=== PATIENT | male | born 1960 | race Caucasian/White ===

== ENCOUNTER 2016-11-08 13:28 | Observation (INO) | payer BC ==
[~2016-11-08] VITALS: Ht 172.7 cm; Wt 79.2 kg
[2016-11-08 14:35] VITALS: BP 95/60; TEMP 36.7; O2SAT 96; BMI 27.0
--- NOTE | 2016-11-08 14:39 | History & Physical Bridge Note ---
H&P Re-Evaluation Bridge Note: I have examined the patient, reviewed the History & Physical and in the interval since the performance of the History & Physical I have noted the following changes of clinical significance: No changes noted
--- NOTE | 2016-11-08 14:39 | Procedure Note ---
Pre-Mod Sedation Assessment General Date of Moderate Sedation: Nov 08, 2016. Review Cardiovascular: regular rate, rhythm Abdomen: soft Lungs: lungs clear Airway Class: II Pre-Sedation Airway Assessment Oral Cavity: WNL Able to Visualize Vocal Cords: No Short Thick Neck: No Hx of Sleep Apnea: No Smoking Status: Former Smoker Mallampati Classification: Class II ASA Classification: Class II Procedure Planning Contraindications-for Mod Sed: None Yes Notes The planned sedation has been discussed with the patient and consent obtained. I have identified the patient, determined the appropriateness of sedation and have assessed the patient immediately prior to the procedure. All medicine(s) and interventions are by my order.
[2016-11-08] MEDS ORDERED: FURO-85 PO (14:49)
[2016-11-08] MEDS ORDERED: CARV6.252 PO (14:50)
[2016-11-08] MEDS ORDERED: NTRGSL/4 UT (14:50)
[2016-11-08] MEDS ORDERED: CLOP1TAB15 PO (14:50)
[2016-11-08] MEDS ORDERED: ASPI1CHW12 (14:50)
[2016-11-08] MEDS ORDERED: LISI-729 PO (14:50)
[2016-11-08] MEDS ORDERED: ATOR-26 PO (14:50)
[2016-11-08] MEDS ORDERED: ASPI-232 PO (14:50)
[2016-11-08] MEDS ORDERED: BUPIVACAINE 0.5 % 5 MG/1 ML MPF 30ML VIAL ONE (15:00)
[2016-11-08] MEDS ORDERED: BACITRACIN 50000 UNIT VIAL ONE (15:00)
[2016-11-08] MEDS ORDERED: LIDOCAINE HCL 1% 20 ML VIAL ONE (15:00)
[2016-11-08] MEDS ORDERED: KEFZOL SPECIAL PROCEDURE STOCK 1 GM ADDVIAL IV ONE ×2 (15:25)
[2016-11-08] MEDS ORDERED: MIDAZOLAM HCL 5 MG/ML 1 ML VIAL ONE ×2 (15:25→15:54)
[2016-11-08] MEDS ORDERED: FENTANYL CITRATE INJ 50 MCG/1 ML 2 ML VIAL ONE ×2 (15:25→15:54)
--- NOTE | 2016-11-08 16:54 | Procedure Note ---
Post-Mod Sedation Assessment General Date of Moderate Sedation Nov 08, 2016. Vital Signs: Vital Signs Past 12 Hours Date Time Temp Pulse Resp B/P (MAP) Pulse Ox O2 Delivery O2 Flow Rate FiO2 11/08/16 16:45 60 16 85/60 (68) 99 Mask 3 11/08/16 14:35 36.7 16 95/60 96 Review - Discharge Criteria Vital Signs Stable: Yes Alert/Oriented/Conversant: Yes Returned to Baseline Mental St: Yes Nausea Absent/Minimal: Yes Pain/Discomfort/Absent/Minimal: Yes Normal/Baseline Respirations: Yes Active Bleeding?: No Pt Received D/C Instructions: N/A Prescriptions Given: None Specific Proced. D/C Criteria Distal Pulses Present (Cardiac: N/A Groin site assessed-Card Cath: N/A Voided Prior To Discharge: N/A Discharged Patients Adult Escort/Transportation: N/A
--- NOTE | 2016-11-08 16:56 | Discharge Instructions ---
Discharge Instructions Date of Service Nov 08, 2016. Admission Reason for Admission: Eschemic Cardiomyopathy *Dr Silver* Discharge Discharge Diagnosis / Problem: ischemic cardiomyopathy Discharge Goals Goal(s): Improve function Activity Recommendations Activity Limitations: as noted below Lifting Limitations: no more than 10 pounds (do not lift the left elbow over the left shoulder for 1 month and lift more than 10 pounds with the left arm for 2 weeks) Driving or Machine Use: resume 1 day after discharge . Instructions / Follow-Up Instructions / Follow-Up ACTIVITY RECOMMENDATIONS: * Do not raise affected arm over head for 4 weeks. SPECIAL CARE INSTRUCTIONS: * If bleeding occurs, apply direct pressure to area for 5 minutes. * Call your doctor if you have severe pain, fever, drainage or bleeding at site. * Keep dry for 24hours. * Keep any scheduled doctor's appointment. * Implant Card - hand held device with website information given. SKIN IRRITATION: * You may experience some redness and/or swelling in the area where radiation was administered. If any skin irritation occurs, please contact your family physician. FOLLOW UP VISIT: Keep any scheduled doctor appointments. Current Hospital Diet Patient's current hospital diet: AHA Diet (Heart Healthy), Low Sodium Diet (2gm Na) Discharge Diet Recommended Diet: AHA Diet (Heart Healthy), Low Sodium Diet (2gm Na) Procedures Procedures Performed: dual chamber rate responsive ICD under fluroscopic guidance Pending Studies Studies pending at discharge: no Medical Emergencies . Who to Call and When: Medical Emergencies: If at any time you feel your situation is an emergency, please call 911 immediately. . Non-Emergent Contact Non-Emergency issues call your: [employer] . . "Provider Documentation" section prepared by Adriana Silver. . VTE Core Measure Inpt VTE Proph given/why not?: Linda Franklin
[2016-11-08] MEDS ORDERED: ACETAMINOPHEN 325 MG TAB PO PRN (17:00)
[2016-11-08] MEDS ORDERED: NITROGLYCERIN 0.4 MG SL PER TAB CHARGE UT PRN (17:00)
--- NOTE | 2016-11-08 17:00 | Discharge Summary ---
Discharge Summary Date of Service Nov 08, 2016. Discharge Summary Admission Date: 11/08/2016 Discharge Date: Nov 09, 2016 Discharge Disposition: Home Principal Diagnosis: ICM Secondary Diagnoses/Problems: Sinus bradycardia Hypotension CAD s/p STEMI HLD Procedures: dual chamber rate responsive ICD under fluoroscopic guidance Medication Reconciliation Continued Medications: Aspirin (Aspir-81) 81 Mg Tab 1 TAB PO DAILY for 30 Days, #30 TAB 5 Refills Atorvastatin (Lipitor) 80 Mg Tab 80 MG PO DAILY, TAB Carvedilol (Coreg) 6.25 Mg Tab 1 TAB PO BID for 90 Days, #180 TAB 1 Refill Clopidogrel (Plavix) 75 Mg Tab 75 MG PO DAILY, TAB Furosemide (Lasix) 20 Mg Tab 1 TAB PO DAILY for 90 Days, #90 TAB 1 Refill Nitroglycerin (Nitrostat) 0.4 Mg Tab 0.4 MG UT PRN, BTL Discontinued Medications: Lisinopril (Zestril) 5 Mg Tab 5 MG PO, TAB Admission Information Physical Exam (per Admitting): aaox3, NAD Supple, No JVD bradycardia S1/S2, no murmur cta b/l no w/r/r soft nt/nd no edema b/l le no focal deficits skin intact Hospital Course Pt admitted for elective ICD due to ICM and SB. Underwent procedure without any complications. Monitored overnight and discharged home following day. Total time spent on discharge = 30 minutes This includes examination of the patient, discharge planning, medication reconciliation, and communication with other providers. Discharge Instructions ACTIVITY RECOMMENDATIONS: * Do not raise affected arm over head for 4 weeks. SPECIAL CARE INSTRUCTIONS: * If bleeding occurs, apply direct pressure to area for 5 minutes. * Call your doctor if you have severe pain, fever, drainage or bleeding at site. * Keep dry for 24 hours. * Keep any scheduled doctor's appointment. * Implant Card - hand held device with website information given. SKIN IRRITATION: * You may experience some redness and/or swelling in the area where radiation was administered. If any skin irritation occurs, please contact your family physician. FOLLOW UP VISIT: Keep any scheduled doctor appointments.
[2016-11-08 17:20] VITALS: BP 95/60; PULSE 61; TEMP 36.5; O2SAT 96
[2016-11-08 17:30] VITALS: BP 95/60; PULSE 61; TEMP 36.5; O2SAT 98; Ht 172.7 cm; Wt 79.2 kg
[2016-11-08] MEDS ORDERED: IV FLUIDS COMPLETED PRN (18:45)
[2016-11-08 18:59] VITALS: BP 94/59; PULSE 62; TEMP 36.5; O2SAT 98
[2016-11-08 20:00] VITALS: O2SAT 98
[2016-11-08] MEDS: CARVEDILOL 6.25 MG TAB PO SCH (21:15)
[2016-11-08] MEDS: OXYCODONE/ACETAMINOPHEN 5-325 TAB PO PRN (21:20)
[2016-11-08 23:31] VITALS: BP 91/55; PULSE 64; TEMP 37; O2SAT 93
[2016-11-09 04:25] VITALS: BP 93/58; PULSE 73; TEMP 36.8; O2SAT 97
[2016-11-09] MEDS: OXYCODONE/ACETAMINOPHEN 5-325 TAB PO PRN (05:13)
[2016-11-09 07:08] VITALS: BP 99/65; PULSE 60; TEMP 36.6; O2SAT 95
--- NOTE | 2016-11-09 07:16 | DIAGNOSTIC IMAGING REPORT ---
CHEST 2 VIEWS ROUTINE CLINICAL HISTORY: 56 years-old Male presenting with ICD placement, evaluate for pneumothorax. TECHNIQUE: PA and lateral views of the chest were obtained. COMPARISON: None. FINDINGS: Left-sided implanted cardiac defibrillator with leads to the right atrium and right ventricular apex. Atherosclerosis of aortic arch. Cardiac silhouette normal in size. Lungs and pleural spaces clear. Degenerative changes of the thoracic spine. Upper abdomen normal. IMPRESSION: 1. Left-sided ICD placement. No pneumothorax. Electronically signed by: Christian Kathleen M.D. 11/09/2016 7:15 AM Dictated Date/Time: 11/09/2016 7:14 AM
--- NOTE | 2016-11-09 08:35 | Cardiology Follow-Up ---
Subjective Subjective Date of Service: Nov 09, 2016. Pt evaluation today including: conversation w/ patient, physical exam, chart review, lab review Pain: minimal discomfort at incision site Review of Systems Constitutional: No fever, No fatigue Respiratory: No shortness of breath, No dyspnea on exertion Cardiac: No chest pain, No edema, No palpitations Abdomen: No vomiting, No diarrhea Endo: No fatigue Objective Vital Signs Last Vital Signs Documentation Date Time Temp Pulse Resp B/P (MAP) Pulse Ox O2 Delivery O2 Flow Rate FiO2 11/09/16 07:08 36.6 60 20 99/65 (76) 95 Room Air 11/08/16 16:45 3 Physical Exam: General Appearance: WD/WN, no apparent distress Eyes: bilateral eyes PERRL, bilateral eyes EOMI Neck: supple, no JVD Respiratory/Chest: lungs clear, normal breath sounds Cardiovascular: regular rate, rhythm, no edema, no JVD, no murmur Abdomen: normal bowel sounds, soft Extremities: no pedal edema Neurologic/Psychiatric: alert, oriented x 3 Skin: warm/dry (left pectoral incision intact, no hematoma mild ecchymosis) Assessment and Plan Impression: 1. ICM s/p dual chamber ICD 11/08/2016 2. Sinus bradycardia 3. Hypotension 4. CAD 5. HLD Plan: -Ok for discharge home today -Stop lisinopril -pt not allowed to lift the left elbow over the left shoulder for 1 month -F/u wound and device check in 7 days Discharge planning: home Medications: Medications Administered Medications (Trade) Dose Ordered Sig/Chuck Route Start Time Stop Time Status Last Admin Dose Admin Cefazolin Sodium (Kefzol Iv) 2 gm STK-MED ONCE IV 11/08/16 15:25 11/08/16 15:26 DC 11/08/16 15:25 2 GM Fentanyl Citrate (Fentanyl Inj) 100 mcg STK-MED ONCE .ROUTE 11/08/16 15:25 11/08/16 15:26 DC 11/08/16 15:25 100 MCG Midazolam HCl (Versed Inj) 5 mg STK-MED ONCE .ROUTE 11/08/16 15:25 11/08/16 15:26 DC 11/08/16 15:25 5 MG Fentanyl Citrate (Fentanyl Inj) 100 mcg STK-MED ONCE .ROUTE 11/08/16 15:54 11/08/16 15:55 DC 11/08/16 15:54 50 MCG Oxycodone/ Acetaminophen (Percocet 5-325mg Tab) 1 tab for pain scale 4-6 2 t... Q6H PRN PO 11/08/16 17:00 11/22/16 16:59 11/09/16 05:13 2 TAB Carvedilol (Coreg Tab) 6.25 mg BID PO 11/08/16 21:00 12/08/16 20:59 11/08/16 21:15 6.25 MG Lab Results: ECG: AP Telemetry: AP and SR ICD interrogation today: stable and wnl lead testing CXR: No PTX RA and RV lead in place
[2016-11-09] MEDS ORDERED: ASPIRIN 81 MG ECTAB PO SCH (09:00)
[2016-11-09] MEDS ORDERED: ATORVASTATIN 40 MG TAB PO SCH (09:00)
[2016-11-09] MEDS ORDERED: FUROSEMIDE 20 MG TAB PO SCH (09:00)
[2016-11-09] MEDS ORDERED: LISINOPRIL 5 MG TAB PO SCH (09:00)
[2016-11-09] MEDS ORDERED: CLOPIDOGREL BISULFATE 75 MG TAB PO SCH (09:00)
[2016-11-09] MEDS: CARVEDILOL 6.25 MG TAB PO SCH (09:26)
[2016-11-09 09:59] VITALS: BP 99/65; PULSE 60; TEMP 36.6; O2SAT 95
--- NOTE | 2016-11-14 14:53 | OPERATIVE REPORT ---
DATE OF OPERATION: 11/08/2016 PREOPERATIVE DIAGNOSIS: Ischemic cardiomyopathy and sinus bradycardia. POSTOPERATIVE DIAGNOSIS: Same. PROCEDURE: Dual chamber rate responsive implantable cardiac defibrillator under fluoroscopic guidance. SURGEON: Adriana Silver DO STEWARD/STEWARDESS SMOKE ROOM: None. ANESTHESIA: Monitored conscious sedation was given under my supervision administered by Roger ____. A total of 5 mg of Versed, 150 mcg of fentanyl, start time 15:33, end time 1639. COMPLICATIONS: None. CONDITION: Stable. URINE OUTPUT: Not applicable. SPECIMENS: None. FINDINGS: See below. DRAINS: None. BLOOD LOSS: Less than 25 mL. INDICATIONS: This is a 56-year-old gentleman who has a past medical history for ischemic cardiomyopathy, ejection fraction 20%, sinus bradycardia, coronary artery disease where he has history of STEMI, hyperlipidemia and hypertension. Due to his ischemic cardiomyopathy and sinus bradycardia he was recommended a dual chamber implantable cardiac defibrillator. CONSENT: Consent was obtained prior to the patient going into the electrophysiology lab. Risks, benefits and alternatives to the procedure. Risks include but not limited to sudden cardiac , cardiac arrhythmias, cerebrovascular accident, myocardial infarction, injury to the blood vessels, chamber of the heart, lungs, bleeding and infection. The patient understood these risks and agreed to the procedure as planned. Informed consent was obtained. DESCRIPTION OF THE PROCEDURE: The patient was brought into the electrophysiology lab in fasting state. He was connected to continuous quality assurance monitor final. Timeout was performed to ensure patient's identity and procedure correctly. The patient received prophylactic antibiotics before incision. [place] precautions were maintained throughout the procedure. Moderate conscious sedation was given throughout the procedure for patient's comfort level under my supervision. 10 mL of 1% lidocaine, bupivacaine mixture were given in the left deltopectoral groove. Incision was made in the left deltoid groove. Blunt dissection was performed down to identify the cephalic vein. The cephalic vein was identified and isolated using 0 silk ties. The vein was nicked with 11 blade and guidewire was inserted without any resistance. The dilator was inserted and 8-Anguillan sheath was inserted over the guidewire without any resistance. The dilator was removed and a second guidewire was inserted through the 8-Anguillan sheath to allow for retained venous access. The 8-Anguillan sheath was removed and 9.5-Anguillan sheath was inserted through the guidewire without any resistance. The guidewire and dilator were removed. The right ventricular defibrillator lead was then advanced into the right ventricle and ultimately positioned into the right ventricular apex area. It looked like there was some rotation in the heart. ____ . There was adequate pacing and sensing thresholds and no diaphragmatic stimulation with high output pacing. The 9.5-Anguillan sheath was peeled away and lead was affixed to pectoralis muscle using 0 silk suture. An 8-Anguillan sheath was advanced over the retained guidewire without any resistance. The guidewire and dilator were removed. The right atrial pacing lead was then advanced into the right atrium and positioned into the right atrial appendage under fluoroscopic guidance. There was adequate pacing and sensing thresholds and no diaphragmatic stimulation with high output pacing. The 8-Anguillan sheath was peeled away and lead was affixed to the pectoralis muscle using 0 silk suture. There was some backbleeding from the venous puncture site, so a pursestring using 2-[address] needle was placed around the cephalic vein. Then using blunt dissection over the pectoralis muscle within the pectoralis fascia a defibrillator pocket was created. The pocket was flushed with copious amounts of bacitracin saline wash and inspected for hemostasis. The new defibrillator generator was attached to the leads making sure that the pins were in appropriate position, passed the set screws and the set screws were all tightened. The pulse generator to then placed in the pocket, making sure that the leads were lying flat beneath the device. Deep stat was placed in the pocket with the patient on aspirin and Plavix and there was a lot of oozing. The incision was closed in 3-layer fashion using a 2-0 Vicryl interrupted suture followed by a 3-0 Vicryl interrupted suture followed by a 4-0 Monocryl running stitch and Dermabond was applied. EQUIPMENT: 1. Defibrillator is a [employer] Evera MRI XT DR Bill [id number], serial number _[id number]. 2. Right atrial lead Medtronic 5076-52 cm, serial number [id number]. 3. Right ventricular lead Med[employer]onic 6935-62 cm, serial number [id number]. INTRAOPERATIVE TESTIN. Right atrial lead: P-waves 4.2 millivolts, impedance 663 ohms, threshold 0.6 volts at 1 milliamp. 2. Right ventricular lead: R-wave 4 millivolts, impedance 499 ohms, threshold 0.4 volts at 0.6 milliamps. FINAL MEASUREMENTS THROUGH THE DEVICE: 1. Right atrial lead: P-wave is 2.4 millivolts, impedance 494 ohms, threshold 0.75 volts at 0.4 milliseconds. 2. Right ventricular lead R-waves 4.1 millivolts, impedance 399 ohms, threshold 0.5 volts at 0.4 milliseconds. 3. RV coil 69 ohms. FINAL PARAMETERS: MVP-R 60/130. Right atrial and right ventricular setting amplitude 3.5 volts, pulse width 0.4 milliseconds, sensitivity 0.3 millivolts. A VT monitor zone at 140 beats per minute with 32 detection intervals and VT zone 176 beats per minute for 20 detection intervals and VF zone at 200 beats per minute for 30/40 detection intervals. IMPRESSION: Successful implantation of dual chamber implantable rate responsive implantable cardiac defibrillator under fluoroscopic guidance secondary to ischemic cardiomyopathy and sinus bradycardia. PLAN: Monitor patient overnight, 12-lead ECG, chest x-ray. He should not lift the left elbow or left shoulder for 1 month. He cannot lift more than 10 pounds with the left arm for 2 weeks. We will stop his lisinopril. He can follow up in our [place] office in 7-10 days for device and wound check. I attest to the content of the Intraoperative Record and any orders documented therein. Any exception s are noted below.
== END 2016-11-09 10:18 | disposition home or self-care (01) ==
LOC: C.ACU 13:28 → ENRESERV 16:18 → C.2T 16:53
PROVIDERS: ADMIT Internal Medicine; ATTEND Internal Medicine
DX: I25.5 Ischemic cardiomyopathy (principal); R00.1 Bradycardia, unspecified; I95.9 Hypotension, unspecified; I25.10 Atherosclerotic heart disease of native coronary artery without angina pectoris; E78.5 Hyperlipidemia, unspecified; F17.200 Nicotine dependence, unspecified, uncomplicated; Z79.899 Other long term (current) drug therapy; Z79.82 Long term (current) use of aspirin; Z72.0 Tobacco use